=== PATIENT | female | born 1955 | race Hispanic/Latino ===

== ENCOUNTER 2018-04-01 14:05 | Emergency (ER) | payer OTHER, SELFPAY ==
[2018-04-01] MEDS ORDERED: HYDROCODONE/APAP 7.5/325 MG TAB ONE (14:29)
--- NOTE | 2018-04-01 15:28 | RAD REPORT ---
EXAM DESCRIPTION: RAD - Pelvis - 04/01/2018 2:55 pm CLINICAL HISTORY: slip and fall Left-sided pain COMPARISON: Femur Left dated 04/01/2018 FINDINGS: [id number] osteoarthritis of both hips. No acute fracture or dislocation is seen. No evidence of AVN. IMPRESSION: No acute finding is demonstrated.
--- NOTE | 2018-04-01 15:29 | RAD REPORT ---
EXAM DESCRIPTION: RAD - Femur Left - 04/01/2018 2:55 pm CLINICAL HISTORY: slip and fall;Pain Left-sided pain COMPARISON: No comparisons FINDINGS: Moderate osteoarthritic changes affect the left hip. No acute fracture, dislocation or AVN . Left total knee arthroplasty is noted. IMPRESSION: No acute finding is evident.
--- NOTE | 2018-04-01 15:31 | RAD REPORT ---
EXAM DESCRIPTION: RAD - Tib Fib Left - 04/01/2018 2:55 pm CLINICAL HISTORY: slip and fall;Pain Left-sided pain COMPARISON: No comparisons FINDINGS: Moderate soft tissue swelling is seen affecting the ankle. Small bony fragmentation is see n distal to the medial and lateral malleoli, age uncertain. Minimal acute avulsion fractures are poss ible. Prominent calcaneal spurs are seen. Left total knee arthroplasty seen.
--- NOTE | 2018-04-01 15:33 | RAD REPORT ---
EXAM DESCRIPTION: RAD - Foot Left 3 View - 04/01/2018 2:55 pm CLINICAL HISTORY: slip and fall;Pain COMPARISON: No comparisons FINDINGS: No acute foot fracture or dislocation is seen. Prominent calcaneal spurs are noted.
--- NOTE | 2018-04-01 16:19 | EDPHYS ---
Physician Documentation [facility] Name: Rosanne Gabriel Age: 63 yrs Sex: Female : 1955 Arrival Date: 04/01/2018 Time: 14:06 Bed 18 Private MD: ED Physician Pepito Jackson HPI: 04/01 14:20 This 63 yrs old Female presents to ER via EMS with complaints of Ankle Injury. cp 14:20 The patient presents with an injury, pain, that is acute, swelling, tenderness. The cp complaints affect the left hip and left knee and left ankle. Onset: The symptoms/episode began/occurred today. Context: resulted from slip and fall on wet surface. Associated signs and symptoms: Pertinent negatives: LOC. Modifying factors: the symptoms are aggravated by movement. Historical: - Allergies: 14:09 No Known Allergies; hb - Home Meds: 14:09 Metformin Oral [Active]; hb - PMHx: 14:09 Hypertension; Diabetes - NIDDM; hb - PSHx: 14:09 knee - left; hb - Immunization history:: Adult Immunizations up to date. - Social history:: Smoking status: Patient/guardian denies using tobacco. - Ebola Screening: : No symptoms or risks identified at this time. ROS: 14:25 Constitutional: Negative for body aches, chills, fever, poor PO intake. cp 14:25 Eyes: Negative for injury, pain, redness, and discharge. cp 14:25 ENT: Negative for drainage from ear(s), ear pain, sore throat, difficulty swallowing, difficulty handling secretions. 14:25 Neck: Negative for stiffness. 14:25 Cardiovascular: Negative for chest pain, edema, palpitations. 14:25 Respiratory: Negative for cough, shortness of breath, wheezing. 14:25 Abdomen/GI: Negative for abdominal pain, nausea, vomiting, and diarrhea. 14:25 Back: Negative for pain at rest, pain with movement, radiated pain. 14:25 MS/extremity: Positive for pain, of the left leg, Negative for deformity, paresthesias. 14:25 Neuro: Negative for altered mental status, headache, loss of consciousness, syncope, near syncope, weakness. 14:25 All other systems are negative. Exam: 14:30 Constitutional: The patient appears in no acute distress, alert, awake, cp non-diaphoretic, non-toxic, well developed, well nourished, uncomfortable. 14:30 Head/Face: Normocephalic, atraumatic. cp 14:30 Eyes: Periorbital structures: appear normal, Pupils: equal, round, and reactive to light and accomodation, Extraocular movements: intact throughout, Conjunctiva: normal, no exudate, no injection, Lids and lashes: appear normal, bilaterally. 14:30 ENT: External ear(s): are unremarkable, Ear canal(s): are normal, clear, TM's: bulging, is not appreciated, bilaterally, dullness, bilaterally, erythema, is not appreciated, bilaterally, Nose: is normal, Mouth: is normal, Posterior pharynx: is normal, airway is patent. 14:30 Neck: C-spine: vertebral tenderness, is not appreciated, crepitus, is not appreciated, ROM/movement: is normal, is supple, without pain, no range of motions limitations, no nuchal rigidity. 14:30 Chest/axilla: Inspection: normal, Palpation: is normal, no crepitus, no tenderness. 14:30 Cardiovascular: Rate: normal, Rhythm: regular. 14:30 Respiratory: the patient does not display signs of respiratory distress, Respirations: normal, Breath sounds: are clear throughout, no decreased breath sounds, no stridor, no wheezing. 14:30 Abdomen/GI: Inspection: obese Palpation: abdomen is soft and non-tender, in all quadrants. 14:30 Back: pain, is absent, ROM is normal. 14:30 Musculoskeletal/extremity: Extremities: grossly normal except: noted in the left leg: pain, tenderness, noted left hip and left knee and left ankle joints, Perfusion: the extremity is normally perfused throughout, Sensation intact. 14:30 Skin: cellulitis, is not appreciated, no rash present. 14:30 Neuro: Orientation: to person, place \T\ time. Mentation: lucid, able to follow commands, Cerebellar function: is grossly normal, Motor: moves all fours, strength is normal, Sensation: no obvious gross deficits. Vital Signs: 14:08 BP 143 / 70; Pulse 67; Resp 15; Temp 98.1(O); Pulse Ox 100% on R/A; Pain 10/10; hb 15:07 BP 122 / 46; Pulse 74; Resp 16; Pulse Ox 98% on R/A; dh3 Procedures: 14:30 Splinting: Splint applied to left ankle using walking boot. applied by nurse. Examined cp by me, post splint application: neurovascular intact, Patient tolerated well. MDM: 14:09 Patient medically screened. cp 16:17 Data reviewed: vital signs, nurses notes, radiologic studies, plain films. cp 16:17 Test interpretation: by ED physician or midlevel provider: plain radiologic studies. cp Counseling: I had a detailed discussion with the patient and/or guardian regarding: the historical points, exam findings, and any diagnostic results supporting the discharge/admit diagnosis, radiology results, the need for outpatient follow up, a orthopedic surgeon, to return to the emergency department if symptoms worsen or persist or if there are any questions or concerns that arise at home. Response to treatment: the patient's symptoms have markedly improved after treatment. 04/01 14:16 Order name: XRAY Pelvis; Complete Time: 15:31 cp 04/01 14:16 Order name: XRAY Femur LEFT; Complete Time: 15:31 cp 04/01 14:16 Order name: XRAY Tib Fib LEFT; Complete Time: 15:36 cp 04/01 14:16 Order name: XRAY Foot LEFT 3 View; Complete Time: 15:36 cp 04/01 15:31 Order name: Walking boot; Complete Time: 16:01 cp 04/01 15:31 Order name: Crutches; Complete Time: 16:01 cp Administered Medications: 15:00 Drug: Hydrocodone-Acetaminophen (7.5 mg-325 mg) 1 tabs Route: PO; hb 15:45 Follow up: Response: No adverse reaction; Pain is decreased sg Disposition: 04/01/18 16:19 Discharged to Home. Impression: Other slipping, tripping and stumbling without falling, Left Ankle Fracture, Pain in left leg - s/p fall. - Condition is Stable. - Discharge Instructions: Ankle Fracture, Musculoskeletal Pain. - Prescriptions for Ibuprofen 800 mg Oral Tablet - take 1 tablet by ORAL route every 8 hours As needed take with food; 30 tablet. Tylenol- Codeine #3 300-30 mg Oral Tablet - take 2 tablets by ORAL route every 6 hours As needed; 15 tablet. - Medication Reconciliation Form, Thank You Letter, Antibiotic Education, Prescription Opioid Use form. - Follow up: Babak Garcia MD; When: 2 - 3 days; Reason: Recheck today's complaints. - Problem is new. - Symptoms have improved. Addendum: 04/04/2018 10:12 Co-signature as Attending Physician, Pepito Jackson MD I agree with the assessment and k dr plan of care. Signatures: Dispatcher [employer] EDMS Florence Griffin bd Pepito Jackson MD MD [facility] Reji Hammond, JOSÉ PA cp Deanne Preston RN RN Taco Patel RN sg Corrections: (The following items were deleted from the chart) 04/01 16:22 16:19 04/01/2018 16:19 Discharged to Home. Impression: Other slipping, tripping and cp stumbling without falling. Condition is Stable. Forms are Medication Reconciliation Form, Thank You Letter, Antibiotic Education, Prescription Opioid Use. Follow up: Babak Garcia; When: 2 - 3 days; Reason: Recheck today's complaints. Problem is new. Symptoms have improved. cp 17:13 16:22 04/01/2018 16:19 Discharged to Home. Impression: Other slipping, tripping and bd stumbling without falling; Left Ankle Fracture; Pain in left leg - s/p fall. Condition is Stable. Discharge Instructions: Ankle Fracture. Prescriptions for Ibuprofen 800 mg Oral Tablet - take 1 tablet by ORAL route every 8 hours As needed take with food; 30 tablet, Tylenol-Codeine #3 300-30 mg Oral Tablet - take 2 tablets by ORAL route every 6 hours As needed; 15 tablet. and Forms are Medication Reconciliation Form, Thank You Letter, Antibiotic Education, Prescription Opioid Use. Follow up: Babak Garcia; When: 2 - 3 days; Reason: Recheck today's complaints. Problem is new. Symptoms have improved. cp
--- NOTE | 2018-04-01 16:19 | ER ---
Nurse's Notes [facility] Name: Rosanne Gabriel Age: 63 yrs Sex: Female : 1955 Arrival Date: 04/01/2018 Time: 14:06 Bed 18 Private MD: Diagnosis: Other slipping, tripping and stumbling without falling;Left Ankle Fracture;Pain in left leg-s/p fall Presentation: 04/01 14:07 Presenting complaint: EMS states: Slipped in laundry detergent, landed on left side, hb c/o left ankle pain 05/22. Denies LOC. Transition of care: patient was not received from another setting of care. Onset of symptoms was April 01, 2018. Risk Assessment: Do you want to hurt yourself or someone else? Patient reports no desire to harm self or others. Care prior to arrival: None. 14:07 Method Of Arrival: EMS: [facility] hb 14:07 Acuity: AMAYA 4 hb 14:20 Initial Sepsis Screen: Does the patient meet any 2 criteria? No. Patient's initial sg sepsis screen is negative. Does the patient have a suspected source of infection? No. Patient's initial sepsis screen is negative. Triage Assessment: 14:20 General: Appears in no apparent distress. Behavior is calm, cooperative, appropriate sg for age. Historical: - Allergies: 14:09 No Known Allergies; hb - Home Meds: 14:09 Metformin Oral [Active]; hb - PMHx: 14:09 Hypertension; Diabetes - NIDDM; hb - PSHx: 14:09 knee - left; hb - Immunization history:: Adult Immunizations up to date. - Social history:: Smoking status: Patient/guardian denies using tobacco. - Ebola Screening: : No symptoms or risks identified at this time. Screenin:20 Abuse screen: Denies threats or abuse. Denies injuries from another. Nutritional ss screening: No deficits noted. Tuberculosis screening: No symptoms or risk factors identified. Never had TB. Fall Risk Total Garcia Fall Scale indicates Low Risk Score (25-44 pts). Fall prevention measures have been instituted. Frequent Obs/Assesments occuring As available Patient and Family Educated on Fall Prevention Program and strategies. Assessment: 14:20 General: Appears in no apparent distress. uncomfortable, well groomed, well developed, sg well nourished, Behavior is calm, cooperative, appropriate for age. Pain: Complains of pain in left knee and anterior aspect of left ankle. Neuro: Level of Consciousness is awake, alert, obeys commands, Oriented to person, place, time, Wash Barrel Leader are equal bilaterally Moves all extremities. Speech is normal, Facial symmetry appears normal. Cardiovascular: Heart tones S1 S2 present Capillary refill is brisk in bilateral fingers toes Patient's skin is warm and dry. Pulses are palpable in right radial artery, right posterior tibial artery, right dorsalis pedis artery, left radial artery, left posterior tibial artery and left dorsalis pedis artery Chest pain is denied. Respiratory: Airway is patent Respiratory effort is even, unlabored, Respiratory pattern is regular, symmetrical, Denies cough, shortness of breath labored breathing, pain with respiration. GI: No signs and/or symptoms were reported involving the gastrointestinal system. : No signs and/or symptoms were reported regarding the genitourinary system. EENT: No signs and/or symptoms were reported regarding the EENT system. Derm: Skin is pink, warm \T\ dry. Musculoskeletal: Circulation, motion, and sensation intact. Range of motion: intact in all extremities, Swelling present in left ankle. 15:20 Reassessment: Patient appears in no apparent distress at this time. Patient and/or sg family updated on plan of care and expected duration. Pain level reassessed. Patient is alert, oriented x 3, equal unlabored respirations, skin warm/dry/pink. awaiting radiology results at this time, will continue to monitor. 16:01 Reassessment: pt ambulatory to wheelchair from stretcher, from wheelchair to restroom, ss back to exam room. Vital Signs: 14:08 BP 143 / 70; Pulse 67; Resp 15; Temp 98.1(O); Pulse Ox 100% on R/A; Pain 10/10; hb 15:07 BP 122 / 46; Pulse 74; Resp 16; Pulse Ox 98% on R/A; dh3 ED Course: 14:06 Patient arrived in ED. hb 14:08 Triage completed. hb 14:09 Reji Hammond PA is PHCP. cp 14:09 Pepito Jackson MD is Attending Physician. cp 14:09 Arm band placed on right wrist. hb 14:10 Patel, Taco, RN is Primary Nurse. sg 14:20 Patient has correct armband on for positive identification. Bed in low position. Call sg light in reach. Side rails up X2. Pulse ox on. NIBP on. Warm blanket given. Head of bed elevated. Elevated left foot. 14:30 Patient moved to radiology via stretcher. jb2 14:30 X-ray completed. Patient tolerated procedure poorly. jb2 14:51 Patient moved back from radiology. jb2 14:52 XRAY Pelvis In Process Unspecified. EDMS 14:52 XRAY Femur LEFT In Process Unspecified. EDMS 14:52 XRAY Tib Fib LEFT In Process Unspecified. EDMS 14:52 XRAY Foot LEFT 3 View In Process Unspecified. EDMS 16:03 3D boot applied to left foot. ss 16:18 Babak Garcia MD is Referral Physician. cp 17:00 No provider procedures requiring assistance completed. Patient did not have IV access sg during this emergency room visit. Administered Medications: 15:00 Drug: Hydrocodone-Acetaminophen (7.5 mg-325 mg) 1 tabs Route: PO; hb 15:45 Follow up: Response: No adverse reaction; Pain is decreased sg Outcome: 16:19 Discharge ordered by MD. cp 17:00 Discharged to home ambulatory, with crutches, with family. sg 17:00 Condition: good 17:00 Discharge instructions given to patient, family, Instructed on discharge instructions, follow up and referral plans. medication usage, safety practices, crutch walking, Demonstrated understanding of instructions, follow-up care, medications, crutch walking, Prescriptions given X 1. 17:13 Patient left the ED. bd Signatures: Dispatcher [employer] EDVA Florence Griffin Steven, RN RN sg Buechter, Jesse jb2 Shanice Curtis RN RN ss Page, Corey, PA PA cp Baxter, Heather, RN RN Nicole Mcknight [facility]
== END 2018-04-01 17:13 | disposition home or self-care (01) ==
LOC: ER 14:05
DX: S82.892A Other fracture of left lower leg, initial encounter for closed fracture (principal); W01.0XXA Fall on same level from slipping, tripping and stumbling without subsequent striking against object, initial encounter; Y93.9 Activity, unspecified; Y92.9 Unspecified place or not applicable; I10 Essential (primary) hypertension; E11.9 Type 2 diabetes mellitus without complications
CPT/HCPCS: 72170; 99284

== ENCOUNTER 2018-04-02 19:56 | Emergency (ER) | payer OTHER, SELFPAY ==
--- NOTE | 2018-04-02 21:21 | ER ---
Nurse's Notes [facility] Name: Rosanne Gabriel Age: 63 yrs Sex: Female : 1955 Arrival Date: 04/02/2018 Time: 20:00 Bed 7 Private MD: Terrell Woods Diagnosis: Chemical burn to buttocks Presentation: 04/02 20:26 Presenting complaint: Patient states: Skin irritation to buttocks and back of right lp1 thigh; states slipping on "liquid washing powder" at store yesterday, pain and irritation worse today. Transition of care: patient was not received from another setting of care. Onset of symptoms was April 02, 2018 at 20:27. Onset of symptoms was April 01, 2018. Risk Assessment: Do you want to hurt yourself or someone else? Patient reports no desire to harm self or others. Initial Sepsis Screen: Does the patient meet any 2 criteria? No. Patient's initial sepsis screen is negative. Does the patient have a suspected source of infection? No. Patient's initial sepsis screen is negative. Care prior to arrival: None. 20:26 Method Of Arrival: Wheelchair lp1 20:26 Acuity: AMAYA 4 lp1 Triage Assessment: 21:05 General: Appears in no apparent distress. Behavior is cooperative, anxious. Pain: ak1 Complains of pain in buttocks. EENT: No signs and/or symptoms were reported regarding the EENT system. Neuro: No deficits noted. Cardiovascular: No deficits noted. Respiratory: No deficits noted. GI: No signs and/or symptoms were reported involving the gastrointestinal system. : No signs and/or symptoms were reported regarding the genitourinary system. Derm: Skin is intact, Skin is dry, Rash noted that is red, on buttocks redness noted to patients buttocks s/p slip and fall on laundry detergent 04/01/18 at a local business in [place]. pt was seen in ER yesterday for fall with no complaints of burning or rash to buttocks area. pt c/o rash, burning to buttocks started late last night after a "bath" and this morning. pt does not know the exact name or ingredients of detergent that came in contact with her skin. Musculoskeletal: No signs and/or symptoms reported regarding the musculoskeletal system. Historical: - Allergies: 20:29 No Known Allergies; lp1 - Home Meds: 20:29 metformin 1,000 mg oral tab 2 times per day [Active]; lisinopril 20 mg Oral tab twice a lp1 day [Active]; - PMHx: 20:29 Diabetes - NIDDM; Hypertension; lp1 - PSHx: 20:29 ; Knee surgery; lp1 - Immunization history:: Adult Immunizations up to date. - Social history:: Smoking status: Patient/guardian denies using tobacco. - Ebola Screening: : No symptoms or risks identified at this time. Screenin:03 Abuse screen: Denies threats or abuse. Denies injuries from another. Nutritional ak1 screening: No deficits noted. Tuberculosis screening: No symptoms or risk factors identified. Fall Risk Fall in past 12 months (25 points). Assessment: 21:11 Reassessment: Patient appears in no apparent distress at this time. No changes from ak1 previously documented assessment. see triage assessment. Vital Signs: 20:27 BP 125 / 52; Pulse 80; Resp 18; Temp 98(TE); Pulse Ox 97% on R/A; Weight 108.86 kg; lp1 Height 5 ft. 7 in. (170.18 cm); Pain 9/10; 21:05 BP 116 / 51; Pulse 72; Resp 18; Pulse Ox 97% on R/A; ak1 20:27 Body Mass Index 37.59 (108.86 kg, 170.18 cm) lp1 ED Course: 20:00 Patient arrived in ED. es 20:01 Terrell Woods MD is Private Physician. es 20:27 Triage completed. lp1 20:27 Arm band placed on right wrist. lp1 20:27 Patient has correct armband on for positive identification. Bed in low position. Call ak1 light in reach. Side rails up X2. Pulse ox on. NIBP on. 20:27 chaperoned visual exam of buttocks. ak1 20:42 Reji Humphrey MD is Attending Physician. [facility] 20:43 Attending Physician role handed off by Reji Humphrey MD tw4 20:43 Oren Jiang MD is Attending Physician. tw4 21:00 Ree Maynard, RN is Primary Nurse. ak1 21:18 Terrell Woods MD is Referral Physician. tw4 21:33 Patient did not have IV access during this emergency room visit. ak1 Administered Medications: No medications were administered Outcome: 21:19 Discharge ordered by . tw4 21:33 Discharged to home via wheelchair, with family. ak1 21:33 Condition: stable 21:33 Discharge instructions given to patient, family, Instructed on discharge instructions, follow up and referral plans. medication usage, Demonstrated understanding of instructions, follow-up care, medications, Prescriptions given X 1. 21:50 Patient left the ED. ak1 Signatures: Reji Humphrey MD MD cha Salyer, Edna es Pena, Laura, RN RN lp1 Ree Maynard RN RN ak1 Oren Jiang MD MD tw4 Corrections: (The following items were deleted from the chart) 21:11 21:05 BP 116 / 51; Pulse 42bpm; Resp 18bpm; Pulse Ox 97% RA; ak1 ak1
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
== END 2018-04-02 21:50 | disposition home or self-care (01) ==
LOC: ER 19:56
DX: T21.45XA Corrosion of unspecified degree of buttock, initial encounter (principal); X08.8XXA Exposure to other specified smoke, fire and flames, initial encounter; Y93.89 Activity, other specified; Y92.009 Unspecified place in unspecified non-institutional (private) residence as the place of occurrence of the external cause; I10 Essential (primary) hypertension; E11.9 Type 2 diabetes mellitus without complications
CPT/HCPCS: 99283

== ENCOUNTER 2019-12-31 18:08 | Emergency (ER) | payer SELFPAY ==
[2019-12-31] MEDS ORDERED: ACETAMINOPHEN 500 MG TAB ONE (19:40)
--- NOTE | 2019-12-31 20:14 | RAD REPORT ---
EXAM DESCRIPTION: CT - Head Brain Wo Cont - 12/31/2019 7:53 pm CLINICAL HISTORY: Head injury status post fall. Headache COMPARISON: 2010 TECHNIQUE: Computed axial tomography of the head was obtained. IV contrast was not requested. All CT scans are performed using dose optimization technique as appropriate and may include automated exposure control or mA/KV adjustment according to patient size. FINDINGS: An intracranial bleed is not seen . The ventricles are normal in caliber. No extra-axial fluid collection is noted. A right frontal scalp laceration. Fluid within the sinuses/ mastoids is not seen. IMPRESSION: No acute intracranial abnormality is seen. If patient's symptoms persist MRI of the bra in would be recommended.
--- NOTE | 2019-12-31 20:43 | RAD REPORT ---
EXAM DESCRIPTION: RAD - Wrist Right 2 View - 12/31/2019 8:13 pm CLINICAL HISTORY: Right wrist pain status post injury FINDINGS: Limited two view series obtained Bones appear osteoporotic No fracture or dislocation is seen. If the patient continues to have symptoms to suggest an occult fracture then a complete three views s eries in 5 days would be recommended
--- NOTE | 2019-12-31 21:03 | EDPHYS ---
Physician Documentation [facility] Name: Rosanne Gabriel Age: 64 yrs Sex: Female : 1955 Arrival Date: 12/31/2019 Time: 18:09 Bed 7 Private MD: ED Physician Oren Jiang HPI: 12/30 23:44 This 64 yrs old Female presents to ER via Wheelchair with complaints of Fall tw4 Injury, Laceration To Forehead. 23:44 Details of fall: The patient fell from an upright position, while standing. Onset: The tw4 symptoms/episode began/occurred today. Associated injuries: The patient sustained injury to the head. Severity of symptoms: At their worst the symptoms were moderate. The patient has not experienced similar symptoms in the past. Historical: - Allergies: 18:25 No Known Allergies; ca1 - Home Meds: 18:25 metformin 1,000 mg Oral tab 2 times per day [Active]; lisinopril 20 mg Oral tab twice a ca1 day [Active]; - PMHx: 18:25 Diabetes - NIDDM; Hypertension; High Cholesterol; ca1 - PSHx: 18:25 ; Knee surgery; ca1 - Immunization history:: Adult Immunizations up to date, Last tetanus immunization: unknown. - Social history:: Smoking status: Patient denies any tobacco usage or history of. ROS: 23:44 Constitutional: Negative for fever, chills, and weight loss, Eyes: Negative for injury, tw4 pain, redness, and discharge, Cardiovascular: Negative for chest pain, palpitations, and edema, Respiratory: Negative for shortness of breath, cough, wheezing, and pleuritic chest pain, Abdomen/GI: Negative for abdominal pain, nausea, vomiting, diarrhea, and constipation, Back: Negative for injury and pain, MS/Extremity: Negative for injury and deformity, Skin: Negative for injury, rash, and discoloration, Neuro: Negative for headache, weakness, numbness, tingling, and seizure. Exam: 23:44 Constitutional: This is a well developed, well nourished patient who is awake, alert, tw4 and in no acute distress. Chest/axilla: Normal chest wall appearance and motion. Nontender with no deformity. No lesions are appreciated. Cardiovascular: Regular rate and rhythm with a normal S1 and S2. No gallops, murmurs, or rubs. Normal PMI, no JVD. No pulse deficits. 23:44 Respiratory: Lungs have equal breath sounds bilaterally, clear to auscultation and percussion. No rales, rhonchi or wheezes noted. No increased work of breathing, no retractions or nasal flaring. Back: No spinal tenderness. No costovertebral tenderness. Full range of motion. MS/ Extremity: Pulses equal, no cyanosis. Neurovascular intact. Full, normal range of motion. Neuro: Awake and alert, GCS 15, oriented to person, place, time, and situation. Cranial nerves II-XII grossly intact. Motor strength 5/5 in all extremities. Sensory grossly intact. Cerebellar exam normal. Normal gait. 23:44 Head/face: Noted is a laceration(s), that is deep, 8 cm(s), of the top of head. Vital Signs: 18:21 Pulse 77; Resp 15 S; Temp 97.8(TE); Pulse Ox 98% on R/A; Weight 104.33 kg (R); Height 5 ca1 ft. 7 in. (170.18 cm) (R); Pain 9/10; 18:25 BP 133 / 66; ca1 19:39 BP 134 / 49; Pulse 76; Resp 17 S; Pulse Ox 99% on R/A; jd3 20:45 Pulse 71; Resp 16 S; Pulse Ox 99% on R/A; jd3 18:21 Body Mass Index 36.02 (104.33 kg, 170.18 cm) ca1 MDM: 19:09 Patient medically screened. tw4 23:44 Differential diagnosis: abrasion, closed head injury, laceration. Data reviewed: vital tw4 signs, nurses notes. Data interpreted: Pulse oximetry: Interpretation:. Counseling: I had a detailed discussion with the patient and/or guardian regarding: the historical points, exam findings, and any diagnostic results supporting the discharge/admit diagnosis. Special discussion: I discussed with the patient/guardian in detail that at this point there is no indication for admission to the hospital. It is understood, however, that if the symptoms persist or worsen the patient needs to return immediately for re-evaluation. 12/30 19:22 Order name: CT Head Brain wo Cont; Complete Time: 20:57 tw4 12/30 19:22 Order name: Wrist Right 2 View XRAY tw4 Administered Medications: 19:36 Drug: Tylenol 1000 mg Route: PO; jd3 20:30 Follow up: Response: No adverse reaction jd3 21:05 Drug: Motrin 800 mg Route: PO; jd3 21:22 Follow up: Response: No adverse reaction jd3 Disposition: 12/31/19 21:03 Discharged to Home. Impression: Concussion without loss of consciousness, Laceration of muscle and tendon of head, Contusion of right wrist, Contusion of right knee. - Condition is Stable. - Discharge Instructions: Contusion, Laceration Care, Adult, Post-Concussion Syndrome. - Prescriptions for Ibuprofen 800 mg Oral Tablet - take 1 tablet by ORAL route every 8 hours As needed take with food; 30 tablet. Tramadol 50 mg Oral Tablet - take 1 tablet by ORAL route every 8 hours as needed; 12 tablet. - Medication Reconciliation Form, Thank You Letter, Antibiotic Education, Prescription Opioid Use form. - Follow up: Private Physician; When: Upon discharge from the Emergency Department; Reason: Recheck today's complaints, Continuance of care, Re-evaluation by your physician. - Problem is new. - Symptoms have improved. Addendum: 03/24/2020 05:02 Addendum: laceration noted to forehead 8cm. t w4 05:15 Addendum: repaired using steri strips and dermabond. t w4 Signatures: Dispatcher [employer] Galo Boyd RN RN jd3 Wadley, Terrence, MD MD tw4 Louise Alcantar RN RN ca1 Corrections: (The following items were deleted from the chart) 12/30 21:22 21:03 12/31/2019 21:03 Discharged to Home. Impression: Concussion without loss of jd3 consciousness; Laceration of muscle and tendon of head; Contusion of right wrist; Contusion of right knee. Condition is Stable. Forms are Medication Reconciliation Form, Thank You Letter, Antibiotic Education, Prescription Opioid Use. Follow up: Private Physician; When: Upon discharge from the Emergency Department; Reason: Recheck today's complaints, Continuance of care, Re-evaluation by your physician. Problem is new. Symptoms have improved. tw4
--- NOTE | 2019-12-31 21:03 | ER ---
Nurse's Notes [facility] Name: Rosanne Gabriel Age: 64 yrs Sex: Female : 1955 Arrival Date: 12/31/2019 Time: 18:09 Bed 7 Private MD: Diagnosis: Concussion without loss of consciousness;Laceration of muscle and tendon of head;Contusion of right wrist;Contusion of right knee Presentation: 12/30 18:21 Chief complaint: Patient states: Missed a step down, fell forward and hit head on a ca1 step that is a brick. Denies LOC. Not on blood thinners. Lac on R side of forehead, c/o pain at lac site, dizziness, pain on R wrist. Coronavirus screen: Proceed with normal triage. Patient denies a cough. Patient denies shortness of breath or difficulty breathing. Patient denies measured and/or subjective temperature greater than 100.4F prior to today's visit. Patient denies travel on a cruise ship or to a country the [facility] currently lists as an affected area. Patient denies contact with known and/or suspected case of COVID-19. Ebola Screen: Patient negative for fever greater than or equal to 101.5 degrees Fahrenheit, and additional compatible Ebola Virus Disease symptoms Patient denies exposure to infectious person. Patient denies travel to an Ebola-affected area in the 21 days before illness onset. No symptoms or risks identified at this time. Initial Sepsis Screen: Does the patient meet any 2 criteria? No. Patient's initial sepsis screen is negative. Does the patient have a suspected source of infection? No. Patient's initial sepsis screen is negative. Risk Assessment: Do you want to hurt yourself or someone else? Patient reports no desire to harm self or others. Onset of symptoms was December 31, 2019. 18:21 Method Of Arrival: Wheelchair ca1 18:21 Acuity: AMAYA 4 ca1 Historical: - Allergies: 18:25 No Known Allergies; ca1 - Home Meds: 18:25 metformin 1,000 mg Oral tab 2 times per day [Active]; lisinopril 20 mg Oral tab twice a ca1 day [Active]; - PMHx: 18:25 Diabetes - NIDDM; Hypertension; High Cholesterol; ca1 - PSHx: 18:25 ; Knee surgery; ca1 - Immunization history:: Adult Immunizations up to date, Last tetanus immunization: unknown. - Social history:: Smoking status: Patient denies any tobacco usage or history of. Screenin:39 Abuse screen: Denies threats or abuse. Nutritional screening: No deficits noted. jd3 Tuberculosis screening: No symptoms or risk factors identified. Fall Risk Ambulatory Aid- None/Bed Rest/Nurse Assist (0 pts). Gait- Normal/Bed Rest/Wheelchair (0 pts) Mental Status- Oriented to own ability (0 pts). Total Garcia Fall Scale indicates No Risk (0-24 pts). Assessment: 19:36 General: Appears in no apparent distress. uncomfortable, Behavior is calm, cooperative, jd3 appropriate for age. Pain: Complains of pain in right wrist and head Quality of pain is described as aching, dull, pressure, tender. Neuro: Level of Consciousness is awake, alert, obeys commands, Oriented to person, place, time, situation, Reports dizziness, headache Denies syncope. Cardiovascular: Denies chest pain, Capillary refill < 3 seconds Patient's skin is warm and dry. Respiratory: Airway is patent Respiratory effort is even, unlabored, Respiratory pattern is regular, symmetrical, Denies cough, shortness of breath. GI: Abdomen is round non-distended, Abd is soft and non tender X 4 quads. Patient currently denies abdominal pain, diarrhea, nausea, vomiting. : No signs and/or symptoms were reported regarding the genitourinary system. EENT: No signs and/or symptoms were reported regarding the EENT system. Derm: Skin is intact, Skin is dry, Skin is normal, Skin temperature is warm. Musculoskeletal: Circulation, motion, and sensation intact. Range of motion: intact in all extremities. 19:36 Injury Description: Laceration sustained to forehead is clean, 2.6 to 7.5 cm long, not jd3 bleeding. 20:44 Reassessment: Patient appears in no apparent distress at this time. Patient and/or jd3 family updated on plan of care and expected duration. Pain level reassessed. Patient is alert, oriented x 3, equal unlabored respirations, skin warm/dry/pink. pt reports feeling a little better, reports some relief with headache, but reports continued soreness in the right wrist. Vital Signs: 18:21 Pulse 77; Resp 15 S; Temp 97.8(TE); Pulse Ox 98% on R/A; Weight 104.33 kg (R); Height 5 ca1 ft. 7 in. (170.18 cm) (R); Pain 9/10; 18:25 BP 133 / 66; ca1 19:39 BP 134 / 49; Pulse 76; Resp 17 S; Pulse Ox 99% on R/A; jd3 20:45 Pulse 71; Resp 16 S; Pulse Ox 99% on R/A; jd3 18:21 Body Mass Index 36.02 (104.33 kg, 170.18 cm) ca1 ED Course: 18:09 Patient arrived in ED. as 18:24 Triage completed. ca1 18:25 Arm band placed on right wrist. ca1 19:09 Oren Jiang MD is Attending Physician. tw4 19:27 Karo Landrum, RN is Primary Nurse. kriss 19:28 Primary Nurse role handed off by Karo Landrum RN jd3 19:28 Galo Bueno RN is Primary Nurse. jd3 19:39 Patient has correct armband on for positive identification. Bed in low position. Call jd3 light in reach. Side rails up X 1. Pulse ox on. NIBP on. 19:53 CT Head Brain wo Cont In Process Unspecified. EDMS 20:15 Wrist Right 2 View XRAY In Process Unspecified. EDMS 21:22 No provider procedures requiring assistance completed. Patient did not have IV access jd3 during this emergency room visit. 21:22 Velcro wrist splint applied to right wrist. jd3 Administered Medications: 19:36 Drug: Tylenol 1000 mg Route: PO; jd3 20:30 Follow up: Response: No adverse reaction jd3 21:05 Drug: Motrin 800 mg Route: PO; jd3 21:22 Follow up: Response: No adverse reaction jd3 Outcome: 21:03 Discharge ordered by . tw4 21:22 Patient left the ED. jd3 21:22 Discharged to home via wheelchair, with family. jd3 21:22 Condition: stable 21:22 Discharge instructions given to patient, Instructed on discharge instructions, follow up and referral plans. medication usage, Demonstrated understanding of instructions, follow-up care, medications, Prescriptions given X 2. Signatures: Dispatcher [employer] EDJohanna Sosa Elena, RN Galo Lyon ea RN RN jd3 Oren Jiang MD MD tw4 Louise Alcantar RN RN ca1 Corrections: (The following items were deleted from the chart) 20:45 19:36 Pain: Complains of pain in head Quality of pain is described as aching, dull, jd3 pressure, tender, jd3
[2019-12-31] MEDS ORDERED: IBUPROFEN 400 MG TAB ONE (21:08)
[2019-12-31 21:28] VITALS: TEMP 97.8
[2019-12-31 21:31] VITALS: BP 134/49; O2SAT 99
== END 2019-12-31 21:22 | disposition home or self-care (01) ==
LOC: ER 18:08
PROC: 0JQ00ZZ Repair Scalp Subcutaneous Tissue and Fascia, Open Approach (ICD-10-PCS; principal; 2019-12-31)
PROC: 0JQ10ZZ Repair Face Subcutaneous Tissue and Fascia, Open Approach (ICD-10-PCS; 2019-12-31)
DX: S06.0X0A Concussion without loss of consciousness, initial encounter (principal); S60.211A Contusion of right wrist, initial encounter; S80.01XA Contusion of right knee, initial encounter; W19.XXXA Unspecified fall, initial encounter; Y93.89 Activity, other specified; Y92.9 Unspecified place or not applicable; I10 Essential (primary) hypertension; E11.9 Type 2 diabetes mellitus without complications; E78.00 Pure hypercholesterolemia, unspecified
CPT/HCPCS: 70450; 99284

== ENCOUNTER 2022-04-04 15:43 | Emergency (ER) | payer MEDICARE ==
--- OUTSIDE RECORDS SUMMARY | 2022-04-04 15:47 | XMS REPORT | Continuity of Care Document ---
:1955 Author Organization [facility] Address [address] [place] [address] Dr. Santoyo [address] [place] [id number] Care Team Providers Name Role Phone Unavailable Unavailable Unavailable Payers Payer Name Policy Type Policy Number Effective Date Expiration Date [facility] (MEDICARE 00:00:00 REPLACEMENT HMO) Problems This patient has no known problems. Allergies, Adverse Reactions, Alerts This patient has no known allergies or adverse reactions. Medications This patient has no known medications. Procedures This patient has no known procedures. Encounters Start End Encounter Admission Attending Care Care Encounter Source Date/Time Date/Time Type Type Clinicians Facility Department ID 2022-02-24 2022-02-24 Outpatient DM[id number] [facility]:01[facility]00 03:01:00 [id number] [facility] 2022-01-02 2022-01-02 Outpatient DM [id number] [facility] 09:00[facility]00 09:00:00 [facility] Results This patient has no known results.
--- NOTE | 2022-04-04 17:13 | RAD REPORT ---
EXAM DESCRIPTION: CT - Head Brain Wo Cont - 04/04/2022 5:01 pm CLINICAL HISTORY: Facial trauma, blunt Trauma, headache, head injury COMPARISON: Head Brain Wo Cont dated 12/31/2019; HEAD BRAIN W O CONTRAST dated 04/10/2011; Pelvis date d 04/01/2018 TECHNIQUE: All CT scans are performed using dose optimization technique as appropriate and may inclu de automated exposure control or mA/KV adjustment according to patient size. FINDINGS: No intracranial hemorrhage, hydrocephalus or extra-axial fluid collection.No areas of brai n edema or evidence of midline shift. The paranasal sinuses and mastoids are clear. The calvarium is intact. IMPRESSION: No acute intracranial abnormality.
--- NOTE | 2022-04-04 18:10 | ER ---
Nurse's Notes [facility] Name: Rosanne Gabriel Age: 67 yrs Sex: Female : 1955 Arrival Date: 04/04/2022 Time: 15:50 Bed Waiting Private MD: Terrell Woods Diagnosis: Other peripheral vertigo;Unspecified injury of head, initial encounter Presentation: 04/04 16:27 Chief complaint: Patient states: patient fell on Sunday, a large dog tripped her; pt 5 endorses falling forwards into grass without LOC. Pt also states that she has been dizzy since Sunday and she isn't sure if it's vertigo. She does have a hx of vertigo. Coronavirus screen: Vaccine status: Patient reports receiving the 2nd dose of the covid vaccine. Client denies travel out of the [place] in the last 14 days. Ebola Screen: Patient negative for fever greater than or equal to 101.5 degrees Fahrenheit, and additional compatible Ebola Virus Disease symptoms Patient denies exposure to infectious person. Patient denies travel to an Ebola-affected area in the 21 days before illness onset. Initial Sepsis Screen: Does the patient meet any 2 criteria? No. Patient's initial sepsis screen is negative. Does the patient have a suspected source of infection? No. Patient's initial sepsis screen is negative. Risk Assessment: Do you want to hurt yourself or someone else? Patient reports no desire to harm self or others. Onset of symptoms was April 01, 2022. 16:27 Method Of Arrival: Ambulatory [facility] 16:27 Acuity: AMAYA [address] [facility] Triage Assessment: 16:31 Headache History: The patient has had previous headaches and this one is similar to [facility] previous episodes. General: Appears in no apparent distress. obese, well groomed, Behavior is calm, cooperative, appropriate for age. Pain: Denies pain. Neuro: No deficits noted. Historical: - PMHx: 16:31 Diabetes - NIDDM; High Cholesterol; Hypertension; [facility] - Immunization history:: Adult Immunizations up to date, Vaccine Information Sheet provided. - Social history:: Smoking status: Patient denies any tobacco usage or history of. Vital Signs: 16:27 BP 133 / 53; Pulse 70; Resp 16; Temp 97.6; Pulse Ox 98% ; Weight 99.79 kg; Height [address] [facility] 7 in. (170.18 cm); Pain 0/10; 16:27 Body Mass Index 34.46 (99.79 kg, 170.18 cm) [facility] ED Course: 15:50 Patient arrived in ED. mr 15:50 Terrell Woods MD is Private Physician. mr 16:31 Triage completed. [facility] 16:31 Arm band placed on right wrist. [facility] 17:03 Head Brain Wo Cont In Process Unspecified. EDMS 17:47 Liliana Ross FNP-C is PHCP. snw 17:47 Pepito Jackson MD is Attending Physician. snw 18:09 Terrell Woods MD is Referral Physician. snw Administered Medications: No medications were administered Outcome: 18:09 Discharge ordered by . snw 18:16 Patient left the ED. [facility] Signatures: Dispatcher [employer] EDMD Liliana Ross FNP-C [facility] SPEC-[facility] Desirae Rhodes Janeth Caba, RN RN [facility] Corrections: (The following items were deleted from the chart) 16:33 16:27 BP 133 / 53; [place] [id number]
--- NOTE | 2022-04-04 18:10 | EDPHYS ---
Physician Documentation [facility] Name: Rosanne Gabriel Age: 67 yrs Sex: Female : 1955 Arrival Date: 04/04/2022 Time: 15:50 Bed Waiting Private MD: Terrell Woods ED Physician Pepito Jackson HPI: 04/04 18:12 This 67 yrs old Female presents to ER via Ambulatory with complaints of snw Dizziness, Headache, Nausea. 18:12 The patient presents with lightheadedness. Context: occurred at home, just prior to the snw episode the patient experienced tripped over the dog and fell into the grass. Modifying factors: The symptoms are alleviated by nothing, the symptoms are aggravated by changing position. Severity of symptoms: At their worst the symptoms were mild in the emergency department the symptoms are unchanged. Patient's baseline: Neuro: alert and fully oriented, Motor: no deficits, The patient has a previous history of vertigo. The patient has experienced a previous episode. It is unknown whether or not the patient has recently seen a physician. Historical: - PMHx: 16:31 Diabetes - NIDDM; High Cholesterol; Hypertension; jh5 - Immunization history:: Adult Immunizations up to date, Vaccine Information Sheet provided. - Social history:: Smoking status: Patient denies any tobacco usage or history of. ROS: 18:11 Constitutional: Negative for fever, chills, and weight loss, Eyes: Negative for injury, snw pain, redness, and discharge, ENT: Negative for injury, pain, and discharge, Neck: Negative for injury, pain, and swelling, Cardiovascular: Negative for chest pain, palpitations, and edema, Respiratory: Negative for shortness of breath, cough, wheezing, and pleuritic chest pain, Abdomen/GI: Negative for abdominal pain, nausea, vomiting, diarrhea, and constipation, Back: Negative for injury and pain, : Negative for injury, bleeding, discharge, and swelling, MS/Extremity: Negative for injury and deformity, Skin: Negative for injury, rash, and discoloration, Psych: Negative for depression, anxiety, suicide ideation, homicidal ideation, and hallucinations. 18:11 Neuro: Positive for dizziness. Exam: 18:11 Constitutional: This is a well developed, well nourished patient who is awake, alert, snw and in no acute distress. Head/Face: Normocephalic, atraumatic. Eyes: Pupils equal round and reactive to light, extra-ocular motions intact. Lids and lashes normal. Conjunctiva and sclera are non-icteric and not injected. Cornea within normal limits. Periorbital areas with no swelling, redness, or edema. ENT: Nares patent. No nasal discharge, no septal abnormalities noted. Tympanic membranes are normal and external auditory canals are clear. Oropharynx with no redness, swelling, or masses, exudates, or evidence of obstruction, uvula midline. Mucous membranes moist. Neck: Trachea midline, no thyromegaly or masses palpated, and no cervical lymphadenopathy. Supple, full range of motion without nuchal rigidity, or vertebral point tenderness. No Meningismus. Chest/axilla: Normal chest wall appearance and motion. Nontender with no deformity. No lesions are appreciated. Cardiovascular: Regular rate and rhythm with a normal S1 and S2. No gallops, murmurs, or rubs. Normal PMI, no JVD. No pulse deficits. Respiratory: Lungs have equal breath sounds bilaterally, clear to auscultation and percussion. No rales, rhonchi or wheezes noted. No increased work of breathing, no retractions or nasal flaring. Abdomen/GI: Soft, non-tender, with normal bowel sounds. No distension or tympany. No guarding or rebound. No evidence of tenderness throughout. Back: No spinal tenderness. No costovertebral tenderness. Full range of motion. Skin: Warm, dry with normal turgor. Normal color with no rashes, no lesions, and no evidence of cellulitis. MS/ Extremity: Pulses equal, no cyanosis. Neurovascular intact. Full, normal range of motion. Neuro: Awake and alert, GCS 15, oriented to person, place, time, and situation. Cranial nerves II-XII grossly intact. Motor strength 5/5 in all extremities. Sensory grossly intact. Cerebellar exam normal. Normal gait. Psych: Awake, alert, with orientation to person, place and time. Behavior, mood, and affect are within normal limits. Vital Signs: 16:27 BP 133 / 53; Pulse 70; Resp 16; Temp 97.6; Pulse Ox 98% ; Weight 99.79 kg; Height 5 ft. jh5 7 in. (170.18 cm); Pain 0/10; 16:27 Body Mass Index 34.46 (99.79 kg, 170.18 cm) [facility] MDM: 17:56 Patient medically screened. snw 18:13 Data reviewed: vital signs, nurses notes. Data interpreted: Pulse oximetry: on room air snw is 98 %. 04/04 16:39 Order name: CT Head Brain wo Cont snw 04/04 16:43 Order name: Head Brain Wo Cont; Complete Time: 17:47 EDMS 04/04 17:47 Order name: FSBS; Complete Time: 18:05 snw Administered Medications: No medications were administered Disposition: 04/05 10:29 Co-signature as Attending Physician, Pepito Jackson MD I agree with the assessment and kdr plan of care. Disposition Summary: 04/04/22 18:09 Discharge Ordered Location: Home snw Condition: Stable snw Diagnosis - Other peripheral vertigo snw - Unspecified injury of head, initial encounter snw Followup: snw - With: Terrell Woods MD - When: 1 - 2 days - Reason: Recheck today's complaints, Continuance of care, Re-evaluation by your physician Discharge Instructions: - Discharge Summary Sheet snw - Head Injury, Adult snw - Vertigo snw Forms: - Medication Reconciliation Form snw - Thank You Letter snw - Antibiotic Education snw - Prescription Opioid Use snw Prescriptions: - Meclizine 25 mg Oral Tablet - take 1 tablet by ORAL route every 8 hours As needed; 30 tablet; Refills: 0, snw Product Selection Permitted Signatures: Dispatcher [employer] EDPepito Pickett MD MD kdr Waters, Shelly, FNP-Lex[employer] Janeth Caba, RN RN jh5
[2022-04-04 19:40] VITALS: BP 133/53; TEMP 97.6; O2SAT 98
== END 2022-04-04 18:16 | disposition home or self-care (01) ==
LOC: ER 15:43
DX: H81.399 Other peripheral vertigo, unspecified ear (principal); S09.90XA Unspecified injury of head, initial encounter; E11.9 Type 2 diabetes mellitus without complications; I10 Essential (primary) hypertension
CPT/HCPCS: 70450; 82947